=== PATIENT | female | born 1950 | race Caucasian/White ===

== ENCOUNTER 2021-02-23 13:19 | Emergency (ER) | payer OTHER ==
[~2021-02-23] VITALS: Ht 165.1 cm; Wt 111.1 kg
[2021-02-23 13:20] VITALS: BP_SYST 156
[2021-02-23] MEDS ORDERED: fentaNYL CITRATE/PF 100 MCG/2 ML AMP IM ONE (13:45)
[2021-02-23 14:40] VITALS: BP_SYST 156
== END 2021-02-23 14:39 | disposition home or self-care (01) ==
LOC: SED 13:19
DX: M54.31 Sciatica, right side (principal); B02.9 Zoster without complications; I10 Essential (primary) hypertension; Z88.6 Allergy status to analgesic agent
CPT/HCPCS: 96372; 99283; J3010